=== PATIENT | female | born 1980 | race Caucasian/White ===

== ENCOUNTER 2018-06-29 12:43 | Emergency (ER) | payer BC ==
[~2018-06-29] VITALS: Ht 157.5 cm; Wt 105.0 kg
[~2018-06-29 12:43] MED LIST: AUGMENTIN875 MG PO; BACTRIM DS1 TAB PO; FLEXERIL PO; NAPROSYN500 MG PO; PROVENTIL
[2018-06-29 13:17] LABS: URINE BILIRUBIN - DIPSTICK NEGATIVE (NEGATIVE); URINE BLOOD DIPSTICK LARGE (NEGATIVE); URINE CLARITY CLOUDY; URINE COLOR YELLOW; URINE GLUCOSE - DIPSTICK NEGATIVE (NEGATIVE); URINE KETONE NEGATIVE (NEGATIVE); URINE LEUK ESTERASE NEGATIVE (NEGATIVE); URINE NITRITE - DIPSTICK NEGATIVE (Negative); URINE PH 5.5 (4.5-8.0); URINE PROTEIN - DIPSTICK NEGATIVE (NEG-TRACE); URINE SPECIFIC GRAVITY >=1.030; URINE UROBILINOGEN - DIPSTICK 0.2 E.U./dL (0.2)
[2018-06-29 13:19] LABS: URINE EPITHELIAL CELLS FEW EPI/hpf (0-FEW)
[2018-06-29 13:47] LABS: HEMATOCRIT 45.3 % (37.0-47.0); HEMOGLOBIN 14.7 g/dl (12.0-16.0); IMMATURE GRANULOCYTES 0.3 % (0.0-5.0); MEAN CELL VOLUME 92.8 fL CALC (80.0-100.0); MEAN CORPUSCULAR HGB 30.1 pG CALC (26.0-32.0); MEAN CORPUSCULAR HGB CONC 32.5 g/L CALC (32.0-36.0); NEUT# 6.15 thou/uL (2.00-7.15); RED BLOOD COUNT 4.88 mill/uL (4.20-5.60); RED CELL DISTRI WIDTH 14.4 % (11.5-15.5)
[2018-06-29 14:02] LABS: ALBUMIN 4.2 g/dL (3.2-5.0); ALKALINE PHOSPHATASE 95 u/l (38-126); ANION GAP 13 (6-22 (CALC)); BILIRUBIN, TOTAL 0.3 mg/dL (0.0-1.4); BUN 16 mg/dL (7-17); BUN/CREATININE RATIO 21 (12-20 (CALC)); CARBON DIOXIDE 25 mmol/l (22-30); CHLORIDE 109 mmol/l (95-108); CREATININE 0.8 mg/dL (0.5-1.0); GFR > 60 ML/MIN (>=60 (CALC)); GFR FOR AFR.AMER. > 60 ML/MIN (>=60 (CALC)); LIPASE 184 u/l (23-300); POTASSIUM 4.1 mmol/l (3.5-5.1); SGOT/AST 20 u/l (14-36); SODIUM 144 mmol/l (137-146); TOTAL PROTEIN 7.4 g/dL (6.3-8.2)
[2018-06-29] MEDS ORDERED: MOTRIN400 MG PO (14:43)
[2018-06-29] MEDS ORDERED: TAMSULOSIN0.4 MG PO (14:43)
[2018-06-29 15:08] VITALS: BP 132/75
== END 2018-06-29 15:08 | disposition home or self-care (01) | DRG 392 ==
LOC: ED 12:43
PROVIDERS: Family Medicine
DX: R10.32 Left lower quadrant pain (principal); R10.9 Unspecified abdominal pain; R50.9 Fever, unspecified; R31.9 Hematuria, unspecified; Z85.528 Personal history of other malignant neoplasm of kidney

== ENCOUNTER 2020-10-23 08:23 | Emergency (ER) | payer BC ==
[~2020-10-23] VITALS: Ht 157.5 cm; Wt 109.1 kg
[~2020-10-23 08:23] MED LIST changes: +MOTRIN400 MG PO; +TAMSULOSIN0.4 MG PO
[2020-10-23 10:07] LABS: HEMATOCRIT 45.5 % (37.0-47.0); HEMOGLOBIN 14.8 g/dl (12.0-16.0); IMMATURE GRANULOCYTES 0.3 % (0.0-5.0); MEAN CELL VOLUME 92.9 fL CALC (80.0-100.0); MEAN CORPUSCULAR HGB 30.2 pG CALC (26.0-32.0); MEAN CORPUSCULAR HGB CONC 32.5 g/dL CAL (32.0-36.0); NEUT# 6.47 thou/uL (2.00-7.15); RED BLOOD COUNT 4.9 mill/uL (4.20-5.60); RED CELL DISTRI WIDTH 14.4 % (11.5-15.5)
[2020-10-23 10:21] LABS: URINE BILIRUBIN - DIPSTICK NEGATIVE (NEGATIVE); URINE BLOOD DIPSTICK NEGATIVE (NEGATIVE); URINE COLOR YELLOW; URINE GLUCOSE - DIPSTICK NEGATIVE (NEGATIVE); URINE KETONE NEGATIVE (NEGATIVE); URINE LEUK ESTERASE NEGATIVE (NEGATIVE); URINE NITRITE - DIPSTICK NEGATIVE (Negative); URINE PH 5.5 (4.5-8.0); URINE PROTEIN - DIPSTICK NEGATIVE (NEG-TRACE); URINE SPECIFIC GRAVITY >=1.030; URINE UROBILINOGEN - DIPSTICK 0.2 E.U./dL (0.2)
[2020-10-23 10:24] LABS: ALBUMIN 4.2 g/dL (3.2-5.0); ALKALINE PHOSPHATASE 113 u/l (38-126); ANION GAP 12 (6-22 (CALC)); BILIRUBIN, TOTAL 0.3 mg/dL (0.0-1.4); BUN 12 mg/dL (7-17); BUN/CREATININE RATIO 16 (12-20 (CALC)); CARBON DIOXIDE 26 mmol/l (22-30); CHLORIDE 106 mmol/l (95-108); CREATININE 0.7 mg/dL (0.5-1.0); GFR > 60 ML/MIN (>=60 (CALC)); GFR FOR AFR.AMER. > 60 ML/MIN (>=60 (CALC)); LIPASE 144 u/l (23-300); POTASSIUM 4.1 mmol/l (3.5-5.1); SGOT/AST 20 u/l (14-36); SODIUM 140 mmol/l (137-146); TOTAL PROTEIN 7.3 g/dL (6.3-8.2)
[2020-10-23 11:36] VITALS: BP 132/63
== END 2020-10-23 11:45 | disposition home or self-care (01) | DRG 392 ==
LOC: ED 08:23
PROVIDERS: Family Medicine
DX: R10.32 Left lower quadrant pain (principal); F17.210 Nicotine dependence, cigarettes, uncomplicated; Z90.5 Acquired absence of kidney; Z90.710 Acquired absence of both cervix and uterus; Z85.528 Personal history of other malignant neoplasm of kidney

== ENCOUNTER 2021-02-13 14:28 | Emergency (ER) | payer BC ==
[~2021-02-13] VITALS: Ht 157.5 cm; Wt 109.0 kg
[2021-02-13 15:01] LABS: URINE BILIRUBIN - DIPSTICK NEGATIVE (NEGATIVE); URINE BLOOD DIPSTICK SMALL (NEGATIVE); URINE COLOR YELLOW; URINE GLUCOSE - DIPSTICK NEGATIVE (NEGATIVE); URINE KETONE NEGATIVE (NEGATIVE); URINE LEUK ESTERASE NEGATIVE (NEGATIVE); URINE PROTEIN - DIPSTICK NEGATIVE (NEG-TRACE); URINE SPECIFIC GRAVITY >=1.030; URINE UROBILINOGEN - DIPSTICK 0.2 E.U./dL (0.2)
[2021-02-13 15:02] LABS: URINE NITRITE - DIPSTICK NEGATIVE (Negative); URINE RBC 0-2 RBC/hpf (0-5)
[2021-02-13 15:05] LABS: HEMATOCRIT 45.4 % (37.0-47.0); HEMOGLOBIN 14.5 g/dl (12.0-16.0); IMMATURE GRANULOCYTES 0.4 % (0.0-5.0); MEAN CELL VOLUME 93.8 fL CALC (80.0-100.0); MEAN CORPUSCULAR HGB CONC 31.9 g/dL CAL (32.0-36.0); NEUT# 8.37 thou/uL (2.00-7.15); RED BLOOD COUNT 4.84 mill/uL (4.20-5.60); RED CELL DISTRI WIDTH 14.7 % (11.5-15.5)
[2021-02-13 15:18] LABS: ALBUMIN 4.5 g/dL (3.2-5.0); ALKALINE PHOSPHATASE 109 u/l (38-126); AMYLASE 70 u/l (30-110); ANION GAP 13 (6-22 (CALC)); BILIRUBIN, TOTAL 0.3 mg/dL (0.0-1.4); BUN 16 mg/dL (7-17); BUN/CREATININE RATIO 19 (12-20 (CALC)); CARBON DIOXIDE 24 mmol/l (22-30); CHLORIDE 107 mmol/l (95-108); CREATININE 0.8 mg/dL (0.5-1.0); GFR > 60 ML/MIN (>=60 (CALC)); GFR FOR AFR.AMER. > 60 ML/MIN (>=60 (CALC)); LIPASE 149 u/l (23-300); POTASSIUM 3.5 mmol/l (3.5-5.1); SGOT/AST 23 u/l (14-36); SODIUM 140 mmol/l (137-146); TOTAL PROTEIN 8.5 g/dL (6.3-8.2)
[2021-02-13 15:25] LABS: MYOGLOBIN 16 ng/mL (0 - 62)
[2021-02-13] MEDS ORDERED: PREVACID30 M3 PO (18:10)
[2021-02-13] MEDS ORDERED: ONDANSETRON4 MG PO (18:10)
[2021-02-13 18:12] VITALS: BP 125/65
== END 2021-02-13 18:16 | disposition home or self-care (01) | DRG 392 ==
LOC: ED 14:28
PROVIDERS: Emergency Medicine
DX: R11.10 Vomiting, unspecified (principal); R25.8 Other abnormal involuntary movements; T40.7X5A Adverse effect of cannabis (derivatives), initial encounter; F41.9 Anxiety disorder, unspecified; F17.210 Nicotine dependence, cigarettes, uncomplicated

== ENCOUNTER 2022-06-08 13:37 | Observation (INO) | payer BC ==
[~2022-06-08] VITALS: Ht 157.5 cm; Wt 109.0 kg
[2022-06-08] VITALS (16 sets, daily range): BP systolic 108–136; BP diastolic 60–82
[~2022-06-08 13:37] MED LIST changes: +ONDANSETRON4 MG PO; +PREVACID30 M3 PO
--- NOTE | 2022-06-08 13:45 | NUR ---
PT AMBULATE TO ROOM FOR EVAL OF CHEST PAIN
[2022-06-08 14:06] LABS: HEMATOCRIT 44.3 % (37.0-47.0); IMMATURE GRANULOCYTES 0.1 % (0.0-5.0); MEAN CELL VOLUME 92.7 fL CALC (80.0-100.0); MEAN CORPUSCULAR HGB 31.4 pG CALC (26.0-32.0); MEAN CORPUSCULAR HGB CONC 33.9 g/dL CAL (32.0-36.0); NEUT# 6.68 thou/uL (2.00-7.15); RED BLOOD COUNT 4.78 mill/uL (4.20-5.60); RED CELL DISTRI WIDTH 13.6 % (11.5-15.5)
[2022-06-08 14:11] LABS: ALBUMIN 4.5 g/dL (3.2-5.0); ALKALINE PHOSPHATASE 102 u/l (38-126); ANION GAP 14 (6-22 (CALC)); BILIRUBIN, TOTAL 0.3 mg/dL (0.0-1.4); BUN 14 mg/dL (7-17); BUN/CREATININE RATIO 16 (12-20 (CALC)); CARBON DIOXIDE 25 mmol/l (22-30); CHLORIDE 106 mmol/l (95-108); CREATININE 0.8 mg/dL (0.5-1.0); GFR FOR AFR.AMER. > 60 ML/MIN (>=60 (CALC)); GFR OTHER RACES > 60 ML/MIN (>=60 (CALC)); POTASSIUM 3.8 mmol/l (3.5-5.1); SGOT/AST 31 u/l (14-36); SODIUM 141 mmol/l (137-146); TOTAL PROTEIN 8.1 g/dL (6.3-8.2)
[2022-06-08] MEDS ORDERED: MOUNJARO2.5 MG SC (14:11)
[2022-06-08 14:23] LABS: MYOGLOBIN 20 ng/mL (0 - 62)
--- NOTE | 2022-06-08 15:06 | NUR ---
Reassessment of patient completed. No distress noted.
--- NOTE | 2022-06-08 17:40 | NUR ---
PT ARRIVED TO [facility] ROOM. PT A/OX3. RESPIRATIONS EVEN AND UNLABORED ON ROOM AIR. LUNG SOUNDS CLEAR. HEART RHYTHM NORMAL WITH TELE IN PLACE#1. BOWEL SOUNDS ACTIVE. BLM 06/07/22. PULSES STRONG. SKIN INTACT. #20G RAC PATENT. NITRO OINTMENT TO RIGHT CHEST. PT DENIES OF ANY CHEST PAINS AT THIS TIME.PT STATES SHE WEARS HOME CPAP AND UNABLE TO BRING IN HOME MACHINE, MD TO BE NOTIFIED. ALL [employer]AFTE[employer] PRECAUTIONS ARE IN PLACE WITH CALL LIGHT IN REACH. PT ORIENTED TO ROOM AND CALL SYSTEM.
--- NOTE | 2022-06-08 18:23 | NUR ---
TELEPHONE ORDERS FOR CPAP QHS AND CONTIIOUS PULSE OX. RT INFORMED.
--- NOTE | 2022-06-08 19:30 | NUR ---
PT IS UPRIGHT IN BED. CPAP MACHINE AT BEDSIDE FOR REPLACEMENT OF HOME CPAP NEEDED FOR SLEEP. POC DISCUSSED AT THIS TIME, LAB SCHEDULE DISCUSSED. SHE REPORTS THAT SHE STILL HAS MILD PRESSUR IN HER CHEST BETWEEN HER BREASTS, REPORTS THAT IT IS MUCH BETTER THAN UPON ARRIVAL. SHE EXPRESSESS THAT SHE CHANGED BRA'S RECENTLY AND IS WONDERING IF IT COULD POSSIBLY BE THAT CAUSING MUSCLE STRAIN. WE DISCUSSED THIS AND I ENCOURAGED THAT SHE IS IN THE RIGHT PLACE PRECAUTIONARY TO R/O ANYTHING MORE SERIOUS, SHE VERBALIZED AGREEMENT. I ENCOURAGED HER TO NOTIFY ME USING CALL SYSTEM FOR INCREASE IN CP, SOB, SWEATS, ARM/NECK/JAW PAIN ANY OTHER ABNORMAL SYMPTOMS THAT MAY ARISE, SHE VERBALIZED UNDERSTANDING AND AGREED. CALL LIGHT AT SIDE.
[2022-06-09 00:06] VITALS: BP 130/81
--- NOTE | 2022-06-09 00:22 | NUR ---
PT CALLED TO REPORT HEADACHE, I OFFERED TO REMOVE NITRO PATCH, SHE HAD IT IN HER HAND STATING IT CAME OFF. CLOTH WAS PROVIDED TO CLEAN HER HANDS AND PASTE REMOVAL. SHE DENIED TYLENOL AT THIS TIME. C/O INABILITY TO SLEEP, I OFFERED SLEEP AIDE, DENIED. SHE ASKED HOW EARLY SHE COULD LEAVE THE HOSPITAL SO WE DISCUSSED DISCHARGE OPTIONS. SHE ASKED IF I COULD GET DISCHARGE ORDERS IN EARLY POSSIBLE. WE DISCUSSED TIMING OF PHYSICIAN ROUNDS AND TOLD HER THAT I WOULD NOTIFY DAY NURSE OF NEED TO DISCHARGE EARLY. 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 I VERBALIZED UNDERSTANDING AND ATTEMPTED TO PROVIDE OPTIONS AND THE NEED FOR SELF CARE, SHE AGREED. DENIED WANTING TO LEAVE AMA AT THIS TIME.
--- NOTE | 2022-06-09 04:00 | NUR ---
PT APPEARS TO BE SLEEPING, SHE IS NOT WEARING CPAP, THIS IS AT BEDSIDE, SHE REPORTED EARLIER THAT SHE DID NOT WANT TO WEAR IT. CONT PULSE OX MONITORING ON SAT 95-96% ON RA.
[2022-06-09 04:09] VITALS: BP 131/74
--- NOTE | 2022-06-09 06:21 | NUR ---
PT SLEEPING SOUNDLY, DID NOT AWAKE TO MY ENTERING ROOM. CPAP IS ON.
[2022-06-09 06:44] VITALS: BP 131/67
--- NOTE | 2022-06-09 08:02 | NUR ---
CPAP STANDBY. O2 SAT ON RA 96%
[2022-06-09 09:26] LABS: HEMATOCRIT 43.2 % (37.0-47.0); HEMOGLOBIN 14.1 g/dl (12.0-16.0); IMMATURE GRANULOCYTES 0.1 % (0.0-5.0); MEAN CELL VOLUME 93.5 fL CALC (80.0-100.0); MEAN CORPUSCULAR HGB 30.5 pG CALC (26.0-32.0); MEAN CORPUSCULAR HGB CONC 32.6 g/dL CAL (32.0-36.0); NEUT# 5.32 thou/uL (2.00-7.15); RED BLOOD COUNT 4.62 mill/uL (4.20-5.60); RED CELL DISTRI WIDTH 13.8 % (11.5-15.5)
[2022-06-09 09:41] LABS: ANION GAP 13 (6-22 (CALC)); BUN 16 mg/dL (7-17); BUN/CREATININE RATIO 18 (12-20 (CALC)); CARBON DIOXIDE 25 mmol/l (22-30); CHLORIDE 106 mmol/l (95-108); CREATININE 0.9 mg/dL (0.5-1.0); GFR FOR AFR.AMER. > 60 ML/MIN (>=60 (CALC)); GFR OTHER RACES > 60 ML/MIN (>=60 (CALC)); POTASSIUM 4.2 mmol/l (3.5-5.1); SODIUM 140 mmol/l (137-146)
[2022-06-09] MEDS ORDERED: ASPIRIN 81 LOW81 MG PO (11:17)
[2022-06-09] MEDS ORDERED: NITROSTAT0.4 MG SL (11:18)
[2022-06-09 11:33] VITALS: BP 111/56
== END 2022-06-09 12:11 | disposition home or self-care (01) | DRG 313 ==
LOC: ED 13:37 → ED-I 15:00 → ED 15:30 → MS2 15:31
PROVIDERS: Nurse Practitioner; ADMIT Internal Medicine; ATTEND Internal Medicine
DX: R07.89 Other chest pain (principal); R20.2 Paresthesia of skin; I10 Essential (primary) hypertension; E11.9 Type 2 diabetes mellitus without complications; G47.33 Obstructive sleep apnea (adult) (pediatric); F41.9 Anxiety disorder, unspecified; F17.200 Nicotine dependence, unspecified, uncomplicated; Z90.5 Acquired absence of kidney; Z85.528 Personal history of other malignant neoplasm of kidney; Z79.899 Other long term (current) drug therapy; Z20.822 Contact with and (suspected) exposure to COVID-19
CPT/HCPCS: G0378; J1650

== ENCOUNTER 2022-07-20 11:09 | Emergency (ER) | payer BC ==
[~2022-07-20] VITALS: Ht 157.5 cm; Wt 103.6 kg
[~2022-07-20 11:09] MED LIST changes: +ASPIRIN 81 LOW81 MG PO; +MOUNJARO2.5 MG SC; +NITROSTAT0.4 MG SL
[2022-07-20 11:57] LABS: HEMATOCRIT 47.6 % (37.0-47.0); HEMOGLOBIN 15.4 g/dl (12.0-16.0); IMMATURE GRANULOCYTES 0.2 % (0.0-5.0); MEAN CELL VOLUME 94.3 fL CALC (80.0-100.0); MEAN CORPUSCULAR HGB 30.5 pG CALC (26.0-32.0); MEAN CORPUSCULAR HGB CONC 32.4 g/dL CAL (32.0-36.0); NEUT# 7.79 thou/uL (2.00-7.15); RED BLOOD COUNT 5.05 mill/uL (4.20-5.60); RED CELL DISTRI WIDTH 13.8 % (11.5-15.5)
[2022-07-20 12:08] LABS: ALBUMIN 4.3 g/dL (3.2-5.0); ALKALINE PHOSPHATASE 107 u/l (38-126); ANION GAP 15 (6-22 (CALC)); BUN 17 mg/dL (7-17); BUN/CREATININE RATIO 18 (12-20 (CALC)); CARBON DIOXIDE 20 mmol/l (22-30); CHLORIDE 110 mmol/l (95-108); CREATININE 0.9 mg/dL (0.5-1.0); GFR FOR AFR.AMER. > 60 ML/MIN (>=60 (CALC)); GFR OTHER RACES > 60 ML/MIN (>=60 (CALC)); LIPASE 98 u/l (23-300); POTASSIUM 4.5 mmol/l (3.5-5.1); SGOT/AST 37 u/l (14-36); SODIUM 140 mmol/l (137-146); TOTAL PROTEIN 8.3 g/dL (6.3-8.2)
[2022-07-20 12:09] LABS: BILIRUBIN, TOTAL 0.5 mg/dL (0.0-1.4)
[2022-07-20 13:24] LABS: URINE BLOOD DIPSTICK LARGE (NEGATIVE); URINE COLOR YELLOW; URINE GLUCOSE - DIPSTICK NEGATIVE (NEGATIVE); URINE KETONE 15 mg/dL (NEGATIVE); URINE LEUK ESTERASE NEGATIVE (NEGATIVE); URINE PH 5.5 (4.5-8.0); URINE PROTEIN - DIPSTICK TRACE mg/dL (NEG-TRACE); URINE SPECIFIC GRAVITY >=1.030; URINE UROBILINOGEN - DIPSTICK 0.2 E.U./dL (0.2)
[2022-07-20 13:30] LABS: URINE BILIRUBIN - DIPSTICK NEGATIVE (NEGATIVE); URINE NITRITE - DIPSTICK NEGATIVE (Negative)
[2022-07-20 13:33] LABS: URINE RBC 50-100 RBC/hpf (0-5)
[2022-07-20 13:35] LABS: URINE SQUAMOUS EPITHELIAL CELL MANY EPI/hpf (0-FEW)
[2022-07-20 13:37] LABS: URINE BACTERIA MANY hpf; URINE MUCUS FEW hpf (NONE-FEW)
[2022-07-20] MEDS ORDERED: TAMSULOSIN0.4 MG PO (15:19)
[2022-07-20] MEDS ORDERED: HYDROCO/APAP1 TA9 PO (15:19)
[2022-07-20] MEDS ORDERED: CEPHALEXIN500 M1 PO (15:19)
[2022-07-20 15:38] VITALS: BP 139/78
== END 2022-07-20 15:43 | disposition home or self-care (01) | DRG 694 ==
LOC: ED 11:09
PROVIDERS: Family Medicine
DX: N20.1 Calculus of ureter (principal); I10 Essential (primary) hypertension; E11.9 Type 2 diabetes mellitus without complications; F41.9 Anxiety disorder, unspecified; F17.200 Nicotine dependence, unspecified, uncomplicated; Z87.19 Personal history of other diseases of the digestive system; Z85.528 Personal history of other malignant neoplasm of kidney
CPT/HCPCS: Q9967